=== PATIENT | female | born 1985 | race Caucasian/White ===

== ENCOUNTER 2021-01-11 19:42 | Emergency (ER) | payer BC ==
[2021-01-11] MEDS ORDERED: Ketorolac 30 MG/ML SDV IM ONE (20:24)
--- NOTE | 2021-01-11 20:30 | EDM.PDOC ---
<Michael Mcdaniel - Last Filed: 01/11/21 21:40> ED HPI GENERAL MEDICAL PROBLEM - General Chief Complaint: Chest Pain Stated Complaint: CHEST PAIN, SIDE PAIN Time Seen by Provider: 01/11/21 20:25 Source of Information: Reports: Patient History Limitations: Reports: No Limitations - History of Present Illness INITIAL COMMENTS - FREE TEXT/NARRATIVE: Briana is a 36 year old female that presents to the clinic with left sided rib pain. Pain started last night, it was very gradual in onset, worsened in the morning. She was seen in [facility] today for the pain. Chest x-ray, CBC, CMP and D-dimer were all unremarkable. The pain worsened when she got home, currently pain is a 8/10 in rating, worsens with deep breaths, it is non radiating. Pain is located on the anterior/lateral sides of her ribs (7-10). She has no other associated symptoms, she did try Tylenol earlier today without much relief. She describes the pain as sharp. Left Lower Anterior Abdominal Pain Score (Numeric/FACES): 8 - Related Data Allergies Allergy/AdvReac Type Severity Reaction Status Date / Time No Known Allergies Allergy Verified 01/11/21 20:44 Home Meds: Home Meds Venlafaxine HCl [Venlafaxine ER] 01/11/21 [History] ED ROS GENERAL - Review of Systems Review Of Systems: Comprehensive ROS is negative, except as noted in HPI. ED EXAM, GENERAL - Physical Exam Exam: See Below Exam Limited By: No Limitations General Appearance: Alert, WD/WN Eye Exam: Bilateral Eye: EOMI, PERRL Ears: Normal External Exam Throat/Mouth: Normal Inspection, Normal Lips, Normal Oropharynx Head: Atraumatic Neck: Normal Inspection Respiratory/Chest: No Respiratory Distress, Lungs Clear, Normal Breath Sounds, Other (Tenderness over anterior lateral aspect of ribs 7-10) Cardiovascular: Normal Peripheral Pulses, Regular Rate, Rhythm Neurological: Alert, Oriented Skin Exam: Other (Minimal ecchymosis over tender rib area ) #1 Interpretation EKG Date: 01/11/21 Time: 21:42 Rhythm: NSR Rate (Beats/Min): 84 [place]: Normal P-Wave: Present QRS: Normal ST-T: Normal QT: Normal Comparison: NA - No Prior EKG EKG Interpretation Comments: Normal EKG, no ST segement elevations or depressions Departure - Departure Time of Disposition: 21:40 Disposition: Home, Self-Care 01 Condition: Good Clinical Impression: Bruised rib Qualifiers: Encounter type: initial encounter Laterality: left Qualified Code(s): S20.212A - Contusion of left front wall of thorax, initial encounter - Discharge Information *PRESCRIPTION DRUG MONITORING PROGRAM REVIEWED*: Not Applicable *COPY OF PRESCRIPTION DRUG MONITORING REPORT IN PATIENT ROSA ISELA: Not Applicable Instructions: Nonspecific Chest Pain, Adult, [id number] Forms: ED Department Discharge Additional Instructions: Advised patient to use Tylenol and ibuprofen as needed for the pain, can follow- up with PCP if pain continues to persist <Karen Strickland - Last Filed: 01/12/21 06:16> Course - Vital Signs Last Recorded V/S: Last Vital Signs Temp 97.4 F 01/11/21 20:00 Pulse 93 01/11/21 20:00 Resp 20 01/11/21 20:00 BP 129/83 01/11/21 20:00 Pulse Ox 98 01/11/21 20:00 - Orders/Labs/Meds Labs: Laboratory Tests 01/11/21 Range/Units 20:47 Troponin I < 0.017 (0.000-0.056) ng/mL Meds: Medications Discontinued Medications Generic Name Dose Route Start Last Admin Trade Name Eleanor PRN Reason Stop Dose Admin Ketorolac Tromethamine 30 mg 01/11/21 20:24 01/11/21 20:36 Ketorolac 30 Mg/Ml Sdv IM 01/11/21 20:25 30 mg ONETIME ONE Administration - Re-Assessments/Exams Free Text/Narrative Re-Assessment/Exam: 01/12/21 06:16 I have examined the patient. I have discussed findings and treatment plan with resident. I agree with assessment plan and documentation. Sepsis Event Note (ED) - Focused Exam Vital Signs: Vital Signs Temp Pulse Resp BP Pulse Ox 01/11/21 20:00 97.4 F 93 20 129/83 98
== END 2021-01-11 22:00 | disposition home or self-care (01) ==
LOC: DL.ED 19:42
DX: S20.212A Contusion of left front wall of thorax, initial encounter (principal); X58.XXXA Exposure to other specified factors, initial encounter
CPT/HCPCS: 36415; 84484; 93010; 96372; 99283; J1885